=== PATIENT | male | born 1930 | race African-American/Black ===

== ENCOUNTER 2016-12-11 16:46 | Emergency (ER) | payer MEDICARE, MEDICAID ==
[2016-12-11 18:50] LABS: PROTHROMBIN TIME 13.6 SEC (11.4-15.4)
--- NOTE | 2016-12-11 18:50 | RADIOLOGY REPORT (SQ) ---
EXAM DESCRIPTION: FOOT RIGHT COMPLETE COMPLETED DATE/TIME: 12/11/2016 6:17 pm REASON FOR STUDY: infection COMPARISON: None. NUMBER OF VIEWS: Three views. TECHNIQUE: AP, lateral and oblique radiographic images acquired of the right foot. LIMITATIONS: None. FINDINGS: MINERALIZATION: Normal. BONES: No acute fracture or dislocation. There is no plain film evidence for bony involvement by ost eomyelitis. JOINTS: Hallux valgus is identified. Degenerative changes are identified and a couple of the tarsal bone articulations. SOFT TISSUES: There is an apparent soft tissue defect at the level of the 1st digit. I cannot exclud e a component of subcutaneous air. Clinical correlation is recommended. There appears to be associa rubio soft tissue swelling. OTHER: No other significant finding. IMPRESSION: No acute fracture or dislocation. No plain film evidence for bony involvement by osteom protis. Other findings as noted above TECHNICAL DOCUMENTATION: JOB ID: [id number] [employer]- All Rights Reserved
[2016-12-11 18:51] LABS: PARTIAL THROMBOPLASTIN TIME 30.4 SEC (23.5-35.8)
[2016-12-11 18:54] LABS: ABSOLUTE EOSINOPHILS # (AUTO) 0.2 10^3/uL (0.0-0.6); ABSOLUTE LYMPHOCYTES (AUTO) 1.6 10^3/uL (0.5-4.7); ABSOLUTE MONOCYTES (AUTO) 0.4 10^3/uL (0.1-1.4); ABSOLUTE NEUT (AUTO) 1.7 10^3/uL (1.7-8.2); EOSINOPHILS % (AUTO) 5.5 % (0-6); HEMATOCRIT 37.9 % (37.9-51.0); HEMOGLOBIN 12.4 g/dL (13.5-17.0); HGB HCT DIFFERENCE -0.7; LYMPHOCYTES % (AUTO) 40.4 % (13-45); MEAN CORPUSCULAR HEMOGLOBIN 33.3 pg (27.0-33.4); MEAN CORPUSCULAR HGB CONC 32.9 g/dL (32.0-36.0); MEAN CORPUSCULAR VOLUME 101 fl (80-97); RED BLOOD COUNT 3.74 10^6/uL (4.35-5.55); RED CELL DISTRIBUTION WIDTH 12.9 % (11.5-14.0); SEGMENTED NEUTROPHILS % (AUTO) 43.1 % (42-78); WHITE BLOOD COUNT 3.8 10^3/uL (4.0-10.5)
[2016-12-11 19:10] LABS: ALANINE AMINOTRANSFERASE 23 U/L (21-72); ALBUMIN 3.9 g/dL (3.5-5.0); ALKALINE PHOSPHATASE 95 U/L (38-126); ANION GAP 12 (5-19); ASPARTATE AMINO TRANSFERASE 19 U/L (17-59); BILIRUBIN,DIRECT 0.4 mg/dL (0.0-0.4); BLOOD UREA NITROGEN 16 mg/dL (7-20); CALCIUM 9.6 mg/dL (8.4-10.2); CARBON DIOXIDE 27 mmol/L (22-30); CHLORIDE 102 mmol/L (98-107); GLUCOSE 110 mg/dL (75-110); POTASSIUM 4.5 mmol/L (3.6-5.0); SODIUM 141.3 mmol/L (137-145); TOTAL PROTEIN 6.9 g/dL (6.3-8.2)
--- NOTE | 2016-12-11 19:23 | ER Document Report ---
ED Extremity Problem, Lower - General Mode of Arrival: Ambulatory Information source: Patient TRAVEL OUTSIDE OF THE [place] IN LAST 30 DAYS: No <RUBIN SCHAEFER - Last Filed: 12/11/16 21:27> <ANDREW CORTES - Last Filed: 12/12/16 00:16> - General Chief Complaint: Toe Injury Stated Complaint: TOE PAIN Time Seen by Provider: 12/11/16 17:18 Notes: Patient is an 86-year-old male who presents to the emergency department today with complaints of left great toe pain. Patient states he has not been seen by a blue print control clerk. [facility] secondary to an abnormal appearance of the left great toe nail with associated pain. History is limited secondary to the patient's being somewhat of a poor historian. (RUBIN SCHAEFER) - Related Data Allergies/Adverse Reactions: No Known Allergies Allergy (Verified 12/11/16 16:57) Past Medical History - General Information source: Patient - Social History Smoking Status: Never Smoker Chew tobacco use (# tins/day): No Frequency of alcohol use: None Drug Abuse: None Lives with: Family Family History: Reviewed & Not Pertinent - Past Medical History Cardiac Medical History: Reports: Hx Congestive Heart Failure GI Medical History: Musculoskeltal Medical History: Infectious Medical History: Surgical Hx: Negative - Immunizations Hx Diphtheria, Pertussis, Tetanus Vaccination: Yes <RUBIN SCHAEFER - Last Filed: 12/11/16 21:27> Review of Systems - Review of Systems Constitutional: No symptoms reported EENT: No symptoms reported Cardiovascular: No symptoms reported Respiratory: No symptoms reported Gastrointestinal: No symptoms reported Genitourinary: No symptoms reported Male Genitourinary: No symptoms reported Musculoskeletal: See HPI, Other - left great toe pain Skin: No symptoms reported Hematologic/Lymphatic: No symptoms reported Neurological/Psychological: No symptoms reported -: Yes All other systems reviewed and negative <RUBIN SCHAEFER - Last Filed: 12/11/16 21:27> Physical Exam <RUBIN SCHAEFER - Last Filed: 12/11/16 21:27> <ANDREW CORTES - Last Filed: 12/12/16 00:16> - Vital signs Vitals: Temp Pulse Resp BP Pulse Ox 97.5 F 76 18 118/47 L 99 12/11/16 16:52 12/11/16 16:52 12/11/16 16:52 12/11/16 16:52 12/11/16 16:52 - Notes Notes: Physical Exam: General: Alert, appears at baseline. HEENT: Normocephalic. Atraumatic. PERRLA. Extraocular movements intact. Oropharynx clear. Neck: Supple. Respiratory: No respiratory distress. Abdominal: Normal Inspection. No distension. Extremities: Moves all four extremities. Fungus on toes of bilateral feet, deformity of left great toe tail, pain with palpation of left great toe nail bed with the area of most pain being on the lateral portion of the great toe closest to the 2nd digit consistent with ingrown toe nail. Neurological: Normal cognition. AAOx4. Normal speech. Psychological: Normal affect. Normal Mood. Skin: Warm. Dry. Normal color. (RUBIN SCHAEFER) Course - Laboratory Result Diagrams: 12/11/16 18:22 12/11/16 18:22 <RUBIN SCHAEFER - Last Filed: 12/11/16 21:27> - Laboratory Result Diagrams: 12/11/16 18:22 12/11/16 18:22 <ANDREW CORTES - Last Filed: 12/12/16 00:16> - Re-evaluation Re-evalutation: 12/12/16 Patient with no evidence for cellulitis, abscess, or osteomyelitis. Patient has an advanced fungal infection of his toenail and looks to be an ingrown toenail. Will be started on Keflex and is to follow-up with podiatry. Otherwise stable for discharge. Blood work unremarkable (ANDREW CORTES ) - Vital Signs Vital signs: Temp Pulse Resp BP Pulse Ox 97.4 F 68 16 154/83 H 100 12/11/16 23:47 12/11/16 23:47 12/11/16 23:47 12/11/16 23:47 12/11/16 23:47 - Laboratory Laboratory results interpreted by me: 12/11/16 12/11/16 18:22 18:22 WBC 3.8 L RBC 3.74 L Hgb 12.4 L MCV 101 H Plt Count 101 L Creatinine 1.30 H Est GFR (Non-Af Amer) 52 L Discharge <RUBIN SCHAEFER - Last Filed: 12/11/16 21:27> <ANDREW CORTES - Last Filed: 12/12/16 00:16> - Discharge Clinical Impression: Fungal toenail infection, Ingrown nail of great toe of left foot Condition: Stable Disposition: HOME, SELF-CARE Instructions: Fungal Nail Infection ([facility]), Ingrown Nail ([facility]) Prescriptions: Cephalexin Monohydrate [Keflex 500 mg Capsule] 500 mg PO TID 10 Days capsule Referrals: AICHA WARNER MD [Primary Care Provider] - Follow up as needed ELIA DENNIS DPM [ACTIVE STAFF] - Follow up in 3-5 days Scribe Attestation: 12/12/16 00:15 I personally performed the services described in the documentation, reviewed and edited the documentation which was dictated to the scribe in my presence, and it accurately records my words and actions. (ANDREW CORTES)
[2016-12-11] MEDS ORDERED: CEPHALEXIN 500 MG CAPSULE PO ONE (19:26)
--- NOTE | 2016-12-11 20:19 | RADIOLOGY REPORT (SQ) ---
EXAM DESCRIPTION: TOE LEFT COMPLETED DATE/TIME: 12/11/2016 7:52 pm REASON FOR STUDY: pain, evaluate for infection COMPARISON: None. NUMBER OF VIEWS: Three views. TECHNIQUE: AP, lateral, and oblique images acquired of the left first toe. LIMITATIONS: None. FINDINGS: MINERALIZATION: Normal. BONES: No acute fracture or dislocation. No worrisome bone lesions. JOINTS: Hallux valgus is identified. SOFT TISSUES: There is an apparent soft tissue defect involving the 1st digit. I cannot exclude subc utaneous air. Clinical correlation is recommended OTHER: No other significant finding. IMPRESSION: No plain film evidence for bony involvement by osteomyelitis. Soft tissue findings invo lving the 1st digit as noted above. Other findings as noted above COMMENT: SITE OF TRAUMA/COMPLAINT MARKED/STAMP COMPLETED: No TECHNICAL DOCUMENTATION: JOB ID: [id number] [employer]- All Rights Reserved
[2016-12-11] MEDS ORDERED: LIDOCAINE 1% INJ-PF (10 MG/ML) 30 ML SDV INJ ONE (21:12)
[2016-12-11] MEDS ORDERED: CEFTRIAXONE INJ 1000 MG VIAL IM ONE (21:12)
[2016-12-11 23:48] VITALS: BP 154/83
== END 2016-12-11 23:47 | disposition home or self-care (01) ==
LOC: ER 16:46
DX: L60.0 Ingrowing nail (principal); B35.1 Tinea unguium; M79.675 Pain in left toe(s)
CPT/HCPCS: 99284; 96372; 36415; 85025; 85610; 85730; 80053; 73630; 73660; J3490; J0696

== ENCOUNTER 2017-07-31 11:35 | Emergency (ER) | payer MEDICARE, MEDICAID ==
[2017-07-31] MEDS ORDERED: HALOPERIDOL LACTATE INJ 5 MG/1 ML VIAL IM ONE (12:09)
[2017-07-31] MEDS ORDERED: LORAZEPAM INJ 2 MG/1 ML VIAL IM ONE ×2 (12:10→17:40)
[2017-07-31] MEDS ORDERED: HALOPERIDOL LACTATE INJ 5 MG/1 ML VIAL ONE (12:14)
--- NOTE | 2017-07-31 13:56 | RADIOLOGY REPORT (SQ) ---
EXAM DESCRIPTION: CT HEAD WITHOUT COMPLETED DATE/TIME: 07/31/2017 1:41 pm REASON FOR STUDY: combative COMPARISON: February 2016 TECHNIQUE: Axial images acquired through the brain without intravenous contrast. Images reviewed wi th bone, brain and subdural windows. Additional sagittal and coronal reconstructions were generated. Images stored on PACS. All CT scanners at this facility use dose modulation, iterative reconstruction, and/or weight based d osing when appropriate to reduce radiation dose to as low as reasonably achievable (ALARA). [facility]: Dose Right [facility]: CareDose [facility]: Dose Right [facility]: Teradose 4D [facility]: Intention Technology RADIATION DOSE: CT Rad equipment meets quality standard of care and radiation dose reduction techniq ues were employed. CTDIvol: 53.2 mGy. DLP: 1124 mGy-cm.mGy. LIMITATIONS: None. FINDINGS: VENTRICLES: Prominent. CEREBRUM: No masses. No hemorrhage. No midline shift. Areas of low density in the white matter mos t likely due to chronic micro-vascular ischemic change. No evidence for acute infarction. CEREBELLUM: No masses. No hemorrhage. No alteration of density. No evidence for acute infarction. EXTRAAXIAL SPACES: Age-related involutional change. No fluid collections. No masses. ORBITS AND GLOBE: No intra- or extraconal masses. Normal contour of globe without masses. CALVARIUM: No fracture. PARANASAL SINUSES: No fluid or mucosal thickening. SOFT TISSUES: No mass or hematoma. OTHER: No other significant finding. IMPRESSION: CHRONIC CHANGES OF ATROPHY AND MICROVASCULAR ISCHEMIA. NO ACUTE PROCESS. EVIDENCE OF ACUTE STROKE: NO. TECHNICAL DOCUMENTATION: JOB ID: [id number] Quality ID # [id number]: Final reports with documentation of one or more dose reduction techniques (e.g., Au tomated exposure control, adjustment of the mA and/or kV according to patient size, use of iterative reconstruction technique) 2010 [employer]- All Rights Reserved Reading location - IP/workstation name: [email or web address]
[2017-07-31 15:06] LABS: ABSOLUTE EOSINOPHILS # (AUTO) 0.1 10^3/uL (0.0-0.6); ABSOLUTE LYMPHOCYTES (AUTO) 1.5 10^3/uL (0.5-4.7); ABSOLUTE MONOCYTES (AUTO) 0.4 10^3/uL (0.1-1.4); ABSOLUTE NEUT (AUTO) 3.4 10^3/uL (1.7-8.2); BASOPHILS % (AUTO) 0.8 % (0-2); EOSINOPHILS % (AUTO) 2.3 % (0-6); HEMOGLOBIN 13.9 g/dL (13.5-17.0); LYMPHOCYTES % (AUTO) 27.7 % (13-45); MEAN CORPUSCULAR HEMOGLOBIN 32.6 pg (27.0-33.4); MEAN CORPUSCULAR HGB CONC 33.9 g/dL (32.0-36.0); MEAN CORPUSCULAR VOLUME 96 fl (80-97); MONOCYTES % (AUTO) 7.8 % (3-13); PLATELET COUNT 124 10^3/uL (150-450); RED BLOOD COUNT 4.27 10^6/uL (4.35-5.55); RED CELL DISTRIBUTION WIDTH 12.8 % (11.5-14.0); SEGMENTED NEUTROPHILS % (AUTO) 61.4 % (42-78); TOTAL CELLS COUNTED % (AUTO) 100 %; WHITE BLOOD COUNT 5.5 10^3/uL (4.0-10.5)
[2017-07-31 15:16] LABS: ALANINE AMINOTRANSFERASE 23 U/L (21-72); ALBUMIN 4.2 g/dL (3.5-5.0); ALKALINE PHOSPHATASE 82 U/L (38-126); ANION GAP 11 (5-19); ASPARTATE AMINO TRANSFERASE 33 U/L (17-59); BILIRUBIN,DIRECT 0.3 mg/dL (0.0-0.4); BILIRUBIN,TOTAL 1.3 mg/dL (0.2-1.3); BLOOD UREA NITROGEN 18 mg/dL (7-20); CALCIUM 10.1 mg/dL (8.4-10.2); CARBON DIOXIDE 31 mmol/L (22-30); CHLORIDE 104 mmol/L (98-107); GLUCOSE 85 mg/dL (75-110); POTASSIUM 4.6 mmol/L (3.6-5.0); SODIUM 145.6 mmol/L (137-145); TOTAL PROTEIN 7.9 g/dL (6.3-8.2)
[2017-07-31 15:42] LABS: APPEARANCE,URINE CLEAR; BILIRUBIN,URINE NEGATIVE (NEGATIVE); COLOR,URINE YELLOW; GLUCOSE, URINE NEGATIVE (NEGATIVE); KETONES,URINE NEGATIVE (NEGATIVE); LEUKOCYTE ESTERASE,URINE NEGATIVE (NEGATIVE); NITRITE,URINE NEGATIVE (NEGATIVE); PROTEIN,URINE NEGATIVE (NEGATIVE); URINE SPECIFIC GRAVITY 1.013
--- NOTE | 2017-07-31 16:49 | ER Document Report ---
ED General - General Chief Complaint: Altered Mental Status Stated Complaint: ALTERED MENTAL STATUS Time Seen by Provider: 07/31/17 11:53 Mode of Arrival: Medic Information source: Transfer Record Notes: This is an 86-year-old man with a history of dementia and combativeness who is brought in from the [facility] because of combativeness. He denies any pain on my evaluation. I did speak to the patient's and family and they reiterate that he does have a history of aggressiveness in the past which is why he is currently at [facility] and that he has a long history of dementia. TRAVEL OUTSIDE OF THE [place] IN LAST 30 DAYS: No - HPI Onset: Just prior to arrival Onset/Duration: Sudden Quality of pain: No pain Severity: None Pain Level: Denies Associated symptoms: denies: Chest pain, Fever, Shortness of breath Exacerbated by: Denies Relieved by: Denies Similar symptoms previously: Yes Recently seen / treated by doctor: No - Related Data Allergies/Adverse Reactions: No Known Allergies Allergy (Verified 12/11/16 16:57) Past Medical History - General Information source: Patient - Social History Smoking Status: Never Smoker Cigarette use (# per day): No Chew tobacco use (# tins/day): No Frequency of alcohol use: None Drug Abuse: None Lives with: Family Family History: Reviewed & Not Pertinent Patient has suicidal ideation: No Patient has homicidal ideation: No - Past Medical History Cardiac Medical History: Reports: Hx Congestive Heart Failure Denies: Hx Coronary Artery Disease, Hx Heart Attack, Hx Hypertension Pulmonary Medical History: Denies: Hx Asthma, Hx Bronchitis, Hx COPD, Hx Pneumonia Neurological Medical History: Denies: Hx Cerebrovascular Accident, Hx Seizures Renal/ Medical History: Denies: Hx Peritoneal Dialysis GI Medical History: Musculoskeltal Medical History: Denies Hx Arthritis Infectious Medical History: Surgical Hx: Negative Past Surgical History: Denies: Hx Pacemaker - Immunizations Hx Diphtheria, Pertussis, Tetanus Vaccination: Yes Review of Systems - Review of Systems Constitutional: denies: Chills, Fever EENT: No symptoms reported Cardiovascular: No symptoms reported Respiratory: No symptoms reported Gastrointestinal: No symptoms reported Genitourinary: No symptoms reported Male Genitourinary: No symptoms reported Musculoskeletal: No symptoms reported Skin: No symptoms reported Hematologic/Lymphatic: No symptoms reported Neurological/Psychological: See HPI Physical Exam - Vital signs Notes: Physical exam: GENERAL: 86-year-old man, alert, he does have dementia. He is in no acute distress. HEAD: Atraumatic, normocephalic. EYES: Pupils equal round and reactive to light, extraocular movements intact, sclera anicteric, conjunctiva are normal. ENT: TMs normal, nares patent, oropharynx clear without exudates. Moist mucous membranes. NECK: Normal range of motion, supple without obvious mass or JVD. LUNGS: Breath sounds clear to auscultation bilaterally and equal. No wheezes rales or rhonchi. HEART: Regular rate and rhythm without murmurs, rubs or gallops. ABDOMEN: Soft, normoactive bowel sounds. No tenderness to palpation. No guarding, no rebound. No masses appreciated. EXTREMITIES: Normal range of motion, no pitting or edema. No clubbing or cyanosis. NEUROLOGICAL: Cranial nerves II through XII grossly intact. Normal speech, moving all extremities. PSYCH: Labile affect SKIN: Warm, Dry, normal turgor, no rashes or lesions noted. Course - Laboratory Result Diagrams: 07/31/17 14:46 07/31/17 14:46 Laboratory results interpreted by me: 07/31/17 07/31/17 07/31/17 14:46 14:46 14:46 RBC 4.27 L Plt Count 124 L Sodium 145.6 H Carbon Dioxide 31 H Creatinine 1.32 H Est GFR (Non-Af Amer) 52 L Urine Urobilinogen 4.0 H - Diagnostic Test Radiology reviewed: Image reviewed, Reports reviewed - CT of the head shows no acute stroke or bleed. Discharge - Discharge Clinical Impression: Combativeness, Dementia Condition: Stable Disposition: HOME, SELF-CARE Additional Instructions: Note: Mr. Glil is had CT showed no evidence of acute stroke or bleed. His urine analysis was without any infection. His kidney function, electrolytes and sugar all look good. He was observed for several hours in the emergency room and has done fine. Recommendations are to continue current medicines.
[2017-07-31 18:07] VITALS: BP 131/110
== END 2017-07-31 18:07 | disposition home or self-care (01) ==
LOC: ER 11:35
DX: F03.91 Unspecified dementia, unspecified severity, with behavioral disturbance (principal)
CPT/HCPCS: 99285; 96372; 36415; 85025; 80053; 81001; 70450; J1630; J2060

== ENCOUNTER 2017-08-11 22:39 | Emergency (ER) | payer MEDICARE, MEDICAID ==
--- NOTE | 2017-08-11 22:55 | ER Document Report ---
ED General - General Stated Complaint: ALTERED MENTAL STATUS Time Seen by Provider: 08/11/17 22:46 Cannot obtain history due to: Dementia Notes: Patient is an 87-year-old male with a past medical history of dementia with associated aggressive behaviors who presents from the nursing facility with concerns that he is being aggressive toward staff. Review of prior documentation shows that this is actually the reason why [facility]. He was seen in the emergency department approximately 10 days ago for the same and had a reassuring evaluation at that time. The patient is profoundly demented, only knows his name. When I ask him what his concerns are today he states "I do not know why I am here" TRAVEL OUTSIDE OF THE [place] IN LAST 30 DAYS: No - Related Data Allergies/Adverse Reactions: No Known Allergies Allergy (Verified 12/11/16 16:57) Past Medical History - General Information source: Emergency Med Personnel, [facility] Records Cannot obtain history due to: Dementia - Social History Smoking Status: Unknown if Ever Smoked Frequency of alcohol use: None Drug Abuse: None Lives with: Assisted Family History: Reviewed & Not Pertinent - Past Medical History Cardiac Medical History: Reports: Hx Congestive Heart Failure Denies: Hx Coronary Artery Disease, Hx Heart Attack, Hx Hypertension Pulmonary Medical History: Denies: Hx Asthma, Hx Bronchitis, Hx COPD, Hx Pneumonia Neurological Medical History: Denies: Hx Cerebrovascular Accident, Hx Seizures Renal/ Medical History: Denies: Hx Peritoneal Dialysis GI Medical History: Musculoskeltal Medical History: Denies Hx Arthritis Infectious Medical History: Past Surgical History: Denies: Hx Pacemaker - Immunizations Hx Diphtheria, Pertussis, Tetanus Vaccination: Yes Review of Systems - Review of Systems Notes: Constitutional: Negative for fever. HENT: Negative for sore throat. Eyes: Negative for visual changes. Cardiovascular: Negative for chest pain. Respiratory: Negative for shortness of breath. Gastrointestinal: Negative for abdominal pain, vomiting or diarrhea. Genitourinary: Negative for dysuria. Musculoskeletal: Negative for back pain. Skin: Negative for rash. Neurological: Negative for headaches, weakness or numbness. 10 point ROS negative except as marked above and in HPI. Physical Exam - Vital signs Interpretation: Normal Notes: PHYSICAL EXAMINATION: GENERAL: Well-appearing, well-nourished and in no acute distress. HEAD: Atraumatic, normocephalic. EYES: Pupils equal round and reactive to light, extraocular movements intact, sclera anicteric, conjunctiva are normal. ENT: nares patent, oropharynx clear without exudates. Moist mucous membranes. NECK: Normal range of motion, supple without lymphadenopathy LUNGS: Breath sounds clear to auscultation bilaterally and equal. No wheezes rales or rhonchi. HEART: Regular rate and rhythm without murmurs ABDOMEN: Soft, nontender, normoactive bowel sounds. No guarding, no rebound. No masses appreciated. EXTREMITIES: Normal range of motion, no pitting or edema. No cyanosis. NEUROLOGICAL: No focal neurological deficits. Moves all extremities spontaneously and on command. PSYCH: Alert, oriented only to person SKIN: Warm, Dry, normal turgor, no rashes or lesions noted. Course - Re-evaluation Re-evalutation: 08/11/17 22:57 Patient presents from his halfway facility after he was apparently combative and violent towards staff of which he has a long-standing history. Review of the medical record indicates that the patient was actually placed in a nursing facility explicitly because he has a tendency towards violent and aggressive behaviors since becoming demented. The patient is alert, oriented only to person. He denies any complaints or concerns. He is calm and cooperative here. No indication for labs or further assessment. He had a full laboratory assessment 1 week ago for the same which was unremarkable. He will be discharged back to the nursing facility with return precautions. Discharge - Discharge Clinical Impression: Aggressive behavior Dementia Qualifiers: Dementia type: unspecified type Dementia behavioral disturbance: with behavioral disturbance Qualified Code(s): F03.91 - Unspecified dementia with behavioral disturbance Condition: Good Disposition: HOME, SELF-CARE Additional Instructions: Return for any additional concerns you may have. Referrals: AICHA WARNER MD [Primary Care Provider] - Follow up as needed
[2017-08-12 04:11] VITALS: BP 179/82
== END 2017-08-12 02:00 | disposition home or self-care (01) ==
LOC: ER 22:39
DX: F91.9 Conduct disorder, unspecified (principal); F03.91 Unspecified dementia, unspecified severity, with behavioral disturbance; R41.82 Altered mental status, unspecified
CPT/HCPCS: 99285

== ENCOUNTER 2017-08-20 12:19 | Emergency (ER) | payer MEDICARE, MEDICAID ==
[2017-08-15] MEDS: DIVALPROEX SODIUM 125 MG CAP.SPRINK PO SCH (18:00)
[2017-08-20] MEDS ORDERED: HALOPERIDOL LACTATE INJ 5 MG/1 ML VIAL IM ONE ×2 (12:50→17:56)
--- NOTE | 2017-08-20 14:56 | ER Document Report ---
ED General - General Stated Complaint: BEHAVIORAL ISSUES Time Seen by Provider: 08/20/17 12:41 TRAVEL OUTSIDE OF THE [place] IN LAST 30 DAYS: No - HPI Notes: 87-year-old male who presents with agitation. No history is limited given the patient's underlying dementia and severe agitation. He presents from a nursing facility where he resides for the after mentioned reason. Apparently he would not take his oral Ativan today, became agitated shelter felt that they could not care for him and sent him to the emergency department. I handle prehospital medical direction and had authorize intramuscular Ativan which she received. On my initial evaluation he is angry, does not answer questions well and does not focus. Minimal other information is available. There has been no history of trauma, no history of antecedent illness. Of note, he has been here 2 times this month for similar presentation, review of those records show negative workups and indicate that his reason for being in the shelter was his agitated behavior. - Related Data Allergies/Adverse Reactions: No Known Allergies Allergy (Verified 12/11/16 16:57) Past Medical History - General Cannot obtain history due to: Dementia - Social History Smoking Status: Unknown if Ever Smoked Family History: Reviewed & Not Pertinent - Past Medical History Cardiac Medical History: Reports: Hx Congestive Heart Failure Denies: Hx Coronary Artery Disease, Hx Heart Attack, Hx Hypertension Pulmonary Medical History: Denies: Hx Asthma, Hx Bronchitis, Hx COPD, Hx Pneumonia Neurological Medical History: Denies: Hx Cerebrovascular Accident, Hx Seizures Renal/ Medical History: Denies: Hx Peritoneal Dialysis GI Medical History: Musculoskeltal Medical History: Denies Hx Arthritis Infectious Medical History: Past Surgical History: Denies: Hx Pacemaker - Immunizations Hx Diphtheria, Pertussis, Tetanus Vaccination: Yes Review of Systems - Review of Systems -: Yes ROS unobtainable due to patient's medical condition Physical Exam - Vital signs Vitals: Temp Pulse Resp BP Pulse Ox 98 F 84 16 112/73 100 08/20/17 13:19 08/20/17 13:19 08/20/17 13:19 08/20/17 13:19 08/20/17 13:19 - Notes Notes: General: Well devloped, no acute distress. HEENT: Normocephalic, atraumatic. Pupils equal round reactive to light. Mucosa moist. No JVD. Chest: No trauma, normal excursion. Respiratory: Good air exchange, normal excursion. Cardiac: Regular rhythm Abdomen: Soft, benign. Nondistended. Back: No asymmetry or gross abnormality. Motor: Grossly normal power and tone. Neurologic: Alert, nonfocal. At times agitated with speaking and speaks nonsensically Vascular: Well perfused Skin: No petechiae or purpura Course - Re-evaluation Re-evalutation: 08/20/17 14:56 Female with agitation, appears to be his baseline state. At this point going to attempt to obtain history from the shelter, review records, allow the Ativan to work and reassess. 08/21/17 18:25 Ultimately elected to proceed with psychiatric consultation and evaluation. Patient required a 5 mg dose of haloperidol as he become acutely agitated, combative and was striking at staff. This had good effect in terms of diffusing his behavior. Labs were ordered at the request of the psychiatric consultation team, however, later canceled after discussion with them and the difficulty in obtaining these labs. Of note, patient had been evaluated and undergone extensive workup with the last couple of weeks which was on illustrative. This time we are attempting behavioral stabilization, he is being cared for by the psychiatric team with medication recommendations being given by them. - Vital Signs Vital signs: Temp Pulse Resp BP Pulse Ox 98.2 F 102 H 17 119/92 H 95 08/20/17 17:07 08/20/17 21:10 08/20/17 21:10 08/20/17 21:10 08/20/17 21:10 - Laboratory Result Diagrams: 08/21/17 18:15 08/21/17 18:15 Laboratory results interpreted by me: 08/20/17 08/21/17 16:25 18:15 Sodium 145.1 H Chloride 111 H Carbon Dioxide 21 L Creatinine 1.70 H Est GFR ( Amer) 46 L Est GFR (Non-Af Amer) 38 L Glucose 143 H Urine Urobilinogen 4.0 H Ur Leukocyte Esterase TRACE H Discharge - Discharge Referrals: AICHA WARNER MD [Primary Care Provider] - Follow up as needed
--- NOTE | 2017-08-20 16:20 | PSYCHOLOGICAL NOTE ---
Psych Note - Psych Note Psych Note: Reason for consult: Dementia related aggressive behaviors/AMS Contact Permission: Daksha (goes by Palak) at [facility] [phone] Patient is an 87 year old male who presented to the ED today via EMS accompanied by JASMYNE due to physically aggressive behaviors at his assisted living facility ([facility]). Patient observed to be resting in bed with patient safety glass installer outside door. He has been calm and cooperative without disturbance in ED thus far. Chart review indicated he was seen in [facility] ED on both 07/31/17 and 08/11/17 both for AMS and similar etiology. Head CT dated 07/31/17 completed secondary to combativeness had the following findings: prominent ventricles, areas of low density in the white matter most likely due to chronic micro-vascular ischemic change and age related involutional change. Overall findings were: chronic changes of atrophy and micro-vascular ischemia. This is language suggestive of neuro-degenerative processes as seen in dementia and coincides with reported diagnosis/behaviors. Reviewed documentation on patient's chart from [facility]. The following medications were listed: Aricept 10MG PO QID, Vitamin D3 1000 Units PO 1 pill QD , Aspirin 81MG PO 1 pill QD, Simvastatin 40MG QD, Namenda 10MG PO QD, Lorazepam 0.5MG Q6H PRN anxiety. Daksha "Carin Walton ([phone]) contacted the [facility] Behavioral Health Team. She identified she is involved in the direct care of patient at [facility]. She reported this is patient's 3rd visit in 2 weeks due to "aggressive, combative behaviors." She further stated he has been "assaultive, fighting staff and other residents." She stated to her knowledge the previous two times he has been in the ED he has required restraints initially. She reported patient has a Dementia diagnosis, his behaviors are a direct result of the dementia and she understands dementia and behaviors will likely get progressively worse. She identified the goal is to get patient to a place like [facility] where he can get medication stabilization so they ([facility]) can then make a referral to a memory care unit at their sister facility. She explained she has been trying to refer patient to [facility] the past couple weeks however they keep asking for the psychiatric consult, medical clearance and lab work. 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 There are only about 3 inpatient facilities that address dementia behaviors so will attempt referral to those facilities ([facility], [place]). Consulted with Dr. Donaldson regarding the management and care of patient. Medication recommendations made by the psychiatric medical provider, Dr. Savanah NOONAN, include: Discontinue Lorazepam 0.5MG every 6 hours as needed for anxiety (should avoid Benzodiazepines and Antipsychotics with patients who have dementia diagnosis as these have been known to cause and/or exacerbate aggression, psychosis, paranoia ). Add Depakote 500MG twice a day for mood stabilization Add Buspar 5MG twice a day for anxiety, sleep, calming
[2017-08-20 16:52] LABS: AMORPHOUS SEDIMENT,URINE TRACE /HPF; APPEARANCE,URINE SLIGHTLY-CLOUDY; BILIRUBIN,URINE NEGATIVE (NEGATIVE); COLOR,URINE YELLOW; GLUCOSE, URINE NEGATIVE (NEGATIVE); KETONES,URINE NEGATIVE (NEGATIVE); LEUKOCYTE ESTERASE,URINE TRACE (NEGATIVE); NITRITE,URINE NEGATIVE (NEGATIVE); PROTEIN,URINE NEGATIVE (NEGATIVE)
--- NOTE | 2017-08-20 17:54 | PSYCHOLOGICAL NOTE ---
Psych Note - Psych Note Psych Note: The sole purpose of this note is to add medication recommendations to address patient's aggressive behaviors Medication recommendations made by contracted psychiatric [facility] provider Dr. Savanah MD includes: 1. Please Discontinue Xanax 2. Please do not prescribe Vistaril or Benadryl 3. Please utilize Depakote sprinkles 500 mg twice a day instead of the p.o. form 4. Please begin risperidone 0.25 mg 1 time dose now 5. Please begin risperidone q. 8 at 8 AM and 4 PM 6. Please begin clonidine 0.2 mg now 7. Please begin clonidine 24 hour patch 0.2 mg at bedtime Treating physicians are asked to consider avoiding prescribing benzodiazepines (example Ativan, Xanax, Valium, Klonopin), antipsychotics ( example Haldol, Geodon, Zyprexa, Seroquel), some sleep aids (such as, Ambien, Lunesta, Sonata), narcotic pain medications, and high-dose steroid (prednisone) as these have been known to cause and/or increased symptoms of aggression, psychosis, or paranoia in patients with neurodegenerative process, such as dementia, Alzheimer's disease, traumatic brain injury, etc. Attending physician not in agreement with plan and disposition. Consulted with Dr. Donaldson regarding the management and care of patient.
[2017-08-20] MEDS ORDERED: BUSPIRONE HCL 10 MG TABLET PO SCH (18:00)
[2017-08-20] MEDS ORDERED: DIVALPROEX SODIUM 500 MG TAB.SR.24H PO SCH (18:00)
--- NOTE | 2017-08-20 18:07 | EKG REPORT ---
SEVERITY:- ABNORMAL ECG - SINUS RHYTHM FIRST DEGREE AV BLOCK : Confirmed by: Ayo Cool MD 20-Aug-2017 18:06:07
--- NOTE | 2017-08-21 08:53 | PSYCHOLOGICAL NOTE ---
Psych Note - Psych Note Psych Note: Reason for evaluation: Aggression Patient is an 87-year-old male. Patient stated "all right". Patient stated "no ". Patient stated "where is the table". Medication recommendations made by contracted psychiatric [facility] provider Dr. Savanah MD includes: 1. Please Discontinue Xanax 2. Please do not prescribe Vistaril or Benadryl 3. Please utilize Depakote sprinkles 500 mg twice a day instead of the p.o. form 4. Please begin risperidone 0.25 mg 1 time dose now 5. Please begin risperidone 0.25 mg q. 8 at 8 AM and 4 PM 6. Please begin clonidine 0.2 mg now 7. Please begin clonidine 24 hour patch 0.2 mg at bedtime Treating physicians are asked to consider avoiding prescribing benzodiazepines (example Ativan, Xanax, Valium, Klonopin), antipsychotics ( example Haldol, Geodon, Zyprexa, Seroquel), some sleep aids (such as, Ambien, Lunesta, Sonata), narcotic pain medications, and high-dose steroid (prednisone) as these have been known to cause and/or increased symptoms of aggression, psychosis, or paranoia in patients with neurodegenerative process, such as dementia, Alzheimer's disease, traumatic brain injury, etc. Impression/Plan: Clinician observed patient is unable to answer assessment questions. Clinician observed patient has food tray and is unable to feed himself, and asked where the table was when clinician pointed out his food was on the tray next to him. Clinician observed yesterday evening around 6 PM patient's nurse approached clinician stating patient had been aggressive. At this time case management manager for [facility] is currently working with discharge planning to coordinate care of patient regarding placement efforts for a dementia care unit. Attending physician in agreement with plan and disposition. Consulted with Dr. Donaldson regarding the management and care of patient.
[2017-08-21] MEDS ORDERED: CEPHALEXIN 500 MG CAPSULE PO ONE (09:44)
--- NOTE | 2017-08-21 09:48 | ER Document Report ---
Doctor's Note Notes: 08/21/17 09:45 87-year-old male who is coming from the [facility] secondary to agitated behavior. Laboratory work was canceled and it does appear that the patient has a urinary tract infection. No antibiotics have yet been provided. No urine culture was sent. I have spoken to the nurse who was caring for the patient. We will attempt to add on a urine culture were collected new sample if needed. Pending urine cultures, we will start the patient on Keflex by mouth if he is willing to take this medication. If he is not we will provide an injection of Rocephin. It appears that the psychiatry team has provided medication recommendations. These have not yet been placed into the system. We are waiting for social work consultation and I will discuss the medication adjustments with the psychiatry team once again. Given the medication adjustments and the urinary tract infection, I will obtain a CBC as well as a chemistry profile with liver panel included.
[2017-08-21] MEDS ORDERED: RISPERIDONE 0.25 MG TABLET PO SCH (13:00)
[2017-08-21] MEDS: RISPERIDONE 0.25 MG TABLET PO SCH (14:10)
[2017-08-21] MEDS: DIVALPROEX SODIUM 125 MG CAP.SPRINK PO SCH (18:00)
[2017-08-21] MEDS: BUSPIRONE HCL 10 MG TABLET PO SCH (18:00)
[2017-08-21] MEDS: CLONIDINE 0.2 MG/24 HR PATCH.TDWK TD SCH (18:00)
[2017-08-21 19:10] LABS: ALANINE AMINOTRANSFERASE 23 U/L (21-72); ALBUMIN 3.8 g/dL (3.5-5.0); ALKALINE PHOSPHATASE 77 U/L (38-126); ANION GAP 13 (5-19); ASPARTATE AMINO TRANSFERASE 53 U/L (17-59); BILIRUBIN,DIRECT 0.3 mg/dL (0.0-0.4); BILIRUBIN,TOTAL 0.8 mg/dL (0.2-1.3); BLOOD UREA NITROGEN 14 mg/dL (7-20); CALCIUM 9.7 mg/dL (8.4-10.2); CARBON DIOXIDE 21 mmol/L (22-30); CHLORIDE 111 mmol/L (98-107); GLUCOSE 143 mg/dL (75-110); POTASSIUM 4.7 mmol/L (3.6-5.0); SODIUM 145.1 mmol/L (137-145); TOTAL PROTEIN 7.5 g/dL (6.3-8.2)
[2017-08-21] MEDS ORDERED: RISPERIDONE 0.5 MG TAB.RAPDIS PO ONE (20:45)
[2017-08-21 21:56] LABS: ABSOLUTE EOSINOPHILS # (AUTO) 0.2 10^3/uL (0.0-0.6); ABSOLUTE LYMPHOCYTES (AUTO) 1.6 10^3/uL (0.5-4.7); ABSOLUTE MONOCYTES (AUTO) 0.3 10^3/uL (0.1-1.4); ABSOLUTE NEUT (AUTO) 2.4 10^3/uL (1.7-8.2); BASOPHILS % (AUTO) 0.8 % (0-2); EOSINOPHILS % (AUTO) 4.6 % (0-6); HEMATOCRIT 36.6 % (37.9-51.0); HEMOGLOBIN 12.4 g/dL (13.5-17.0); LYMPHOCYTES % (AUTO) 34.7 % (13-45); MEAN CORPUSCULAR HEMOGLOBIN 33.1 pg (27.0-33.4); MEAN CORPUSCULAR HGB CONC 33.9 g/dL (32.0-36.0); MEAN CORPUSCULAR VOLUME 98 fl (80-97); MONOCYTES % (AUTO) 6.9 % (3-13); PLATELET COUNT 126 10^3/uL (150-450); RED BLOOD COUNT 3.75 10^6/uL (4.35-5.55); RED CELL DISTRIBUTION WIDTH 12.9 % (11.5-14.0); TOTAL CELLS COUNTED % (AUTO) 100 %; WHITE BLOOD COUNT 4.5 10^3/uL (4.0-10.5)
[2017-08-22] MEDS: CEPHALEXIN 500 MG CAPSULE PO SCH ×3 (03:29→12:00)
--- NOTE | 2017-08-22 09:22 | ER Document Report ---
Doctor's Note Notes: 08/22/17 09:21 Patient is an 87-year-old male that is here secondary to some increased agitation at the nursing care facility. Patient appeared to have a urinary tract infection. We will finally able to obtain blood work showing some dehydration. Patient has been eating and drinking well. Patient is very adamant and angry about our attempts to possibly place an IV. We are treating the patient for urinary tract infection. We are attempting to find placement for the patient. I believe that if the patient is able to drink and tolerate p.o. fluids, we can check the patient's chemistry once again and avoid IV placement and fluid hydration while we treat the patient's urinary tract infection. 08/22/17 14:33 Urine culture as recorded. Patient has been drinking well. Keflex has been discontinued.
--- NOTE | 2017-08-22 11:48 | PSYCHOLOGICAL NOTE ---
Psych Note - Psych Note Psych Note: Reason for evaluation: Aggression Patient is an 87-year-old male. Patient stated "all right". Patient stated "no ". Patient stated "where is the table". Clinician conducted checking with patient Patient observed to be eating on his own and greeted clinician upon entering the room. Patient stated he is doing well and asked how the clinician was doing. Patient mood was euthymic with congruent affect as evidenced by patient smiling at clinician. Medication recommendations made by contracted psychiatric [facility] provider Dr. Savanah MD includes: 1. Please Discontinue Xanax 2. Please do not prescribe Vistaril or Benadryl 3. Please utilize Depakote sprinkles 500 mg twice a day instead of the p.o. form 4. Please begin risperidone 0.25 mg 1 time dose now 5. Please begin risperidone 0.25 mg q. 8 at 8 AM and 4 PM 6. Please begin clonidine 0.2 mg now 7. Please begin clonidine 24 hour patch 0.2 mg at bedtime Treating physicians are asked to consider avoiding prescribing benzodiazepines (example Ativan, Xanax, Valium, Klonopin), antipsychotics ( example Haldol, Geodon, Zyprexa, Seroquel), some sleep aids (such as, Ambien, Lunesta, Sonata), narcotic pain medications, and high-dose steroid (prednisone) as these have been known to cause and/or increased symptoms of aggression, psychosis, or paranoia in patients with neurodegenerative process, such as dementia, Alzheimer's disease, traumatic brain injury, etc. Impression/Plan: Patient is considered cleared from acute psychiatric services. Patient is still working with discharge planning to obtain long-term care. Please re-consult if new concerns arise. Dr. Donaldson was consulted on the care and management of this patient; attending physician is agreement with recommendations and disposition.
[2017-08-22] MEDS: BUSPIRONE HCL 10 MG TABLET PO SCH ×2 (12:00→18:00)
[2017-08-22] MEDS: RISPERIDONE 0.25 MG TABLET PO SCH ×3 (12:00→18:00)
[2017-08-22] MEDS: DIVALPROEX SODIUM 125 MG CAP.SPRINK PO SCH (12:00)
[2017-08-23] MEDS: BUSPIRONE HCL 10 MG TABLET PO SCH ×2 (10:13→23:00)
[2017-08-23] MEDS: DIVALPROEX SODIUM 125 MG CAP.SPRINK PO SCH ×2 (10:13→23:00)
[2017-08-23] MEDS: RISPERIDONE 0.25 MG TABLET PO SCH ×2 (10:13→23:00)
--- NOTE | 2017-08-23 10:34 | ER Document Report ---
Doctor's Note Notes: 08/23/17 10:33 Rounds: Chart reviewed and patient interviewed. Patient says he is feeling fine this morning. History of dementia. Resident at [facility], but they will not accept him back as a patient. Discharge planning is working with him and he has a pending Acceptance at [facility]. Vital signs were all essentially normal. Labs were normal except for a questionable UTI on his urine, that he does not have any symptoms. I doubt he has a UTI. Patient appears to be medically stable for transfer or discharge. Corby York MD
[2017-08-23] MEDS ORDERED: RISPERIDONE 0.25 MG TABLET PO ONE (18:00)
[2017-08-23] MEDS ORDERED: BUSPIRONE HCL 10 MG TABLET PO ONE (18:00)
[2017-08-23] MEDS ORDERED: DIVALPROEX SODIUM 125 MG CAP.SPRINK PO ONE (18:00)
[2017-08-23] MEDS: CLONIDINE 0.2 MG/24 HR PATCH.TDWK TD SCH (18:29)
[2017-08-24] MEDS ORDERED: HALOPERIDOL LACTATE INJ 5 MG/1 ML VIAL IM ONE (00:37)
--- NOTE | 2017-08-24 00:40 | ER Document Report ---
Doctor's Note Notes: 08/24/17 00:39 Patient became extremely agitated, was violent with nursing staff and swinging at them. He is given intramuscular haloperidol for emergent control. He refused any of his oral medications, refused food.
--- NOTE | 2017-08-24 10:10 | ER Document Report ---
Doctor's Note Notes: 08/24/17 10:07 Rounds: Chart reviewed. Patient not interviewed because he sleeping soundly. Staff reports that he has been combative at times. Lab studies reviewed and a final culture on the patient's urine came back with only a 4000 colony count, which is not considered a UTI. Vital signs are all stable. Patient appears to be medically stable for transfer or discharge. My understanding is that we are awaiting placement for this patient. Corby York MD
[2017-08-24] MEDS: RISPERIDONE 0.25 MG TABLET PO SCH ×2 (11:28→22:10)
[2017-08-24] MEDS: DIVALPROEX SODIUM 125 MG CAP.SPRINK PO SCH ×2 (11:28→22:10)
[2017-08-24] MEDS: BUSPIRONE HCL 10 MG TABLET PO SCH ×2 (11:29→22:09)
--- NOTE | 2017-08-25 09:48 | ER Document Report ---
Doctor's Note Notes: 08/25/17 09:48 This is a follow-up evaluation: Primary diagnosis-dementia Patient is here for the above reason, has been doing well, currently has --no complaint. On examination-vitals reviewed in the chart. General exam: Alert oriented 3 not in any acute distress HEENT: Normocephalic atraumatic pupils are equal reactive to light, Lungs-clear breath sounds no rales or wheezing. Cardiovascular system: Normal S1-S2 no murmurs. Gastrointestinal: Normal breath sounds, no organomegaly positive bowel sounds. Genitourinary: Skin: No lesions noted, no rash Psychiatric: Diagnoses: Dementia Plan: Waiting for placement for dementia
[2017-08-25] MEDS: DIVALPROEX SODIUM 125 MG CAP.SPRINK PO SCH (21:48)
[2017-08-25] MEDS: BUSPIRONE HCL 10 MG TABLET PO SCH (21:48)
[2017-08-25] MEDS: RISPERIDONE 0.25 MG TABLET PO SCH (21:48)
[2017-08-26] MEDS: DIVALPROEX SODIUM 125 MG CAP.SPRINK PO SCH ×2 (11:15→23:51)
[2017-08-26] MEDS: BUSPIRONE HCL 10 MG TABLET PO SCH ×2 (11:15→23:50)
[2017-08-26] MEDS: RISPERIDONE 0.25 MG TABLET PO SCH ×2 (11:15→23:52)
--- NOTE | 2017-08-27 09:39 | ER Document Report ---
Doctor's Note Notes: 08/27/17 09:38 This is a follow-up evaluation: Primary diagnosis-dementia Patient is here for the above reason, has been doing well, currently has --no complaint. On examination-vitals reviewed in the chart. General exam: Alert oriented 3 not in any acute distress HEENT: Normocephalic atraumatic pupils are equal reactive to light, Lungs-clear breath sounds no rales or wheezing. Cardiovascular system: Normal S1-S2 no murmurs. Gastrointestinal: Normal breath sounds, no organomegaly positive bowel sounds. Genitourinary: Skin: No lesions noted, no rash Psychiatric: Diagnoses: Dementia Plan: Waiting for placement for dementia
[2017-08-27] MEDS: DIVALPROEX SODIUM 125 MG CAP.SPRINK PO SCH ×2 (10:43→22:50)
[2017-08-27] MEDS: BUSPIRONE HCL 10 MG TABLET PO SCH ×2 (10:44→22:45)
[2017-08-27] MEDS: RISPERIDONE 0.25 MG TABLET PO SCH ×2 (10:44→22:45)
[2017-08-27] MEDS ORDERED: OLANZAPINE 5 MG TABLET PO ONE (17:54)
[2017-08-27] MEDS ORDERED: PROPRANOLOL HCL 10 MG TABLET PO ONE (21:22)
--- NOTE | 2017-08-27 22:17 | ER Document Report ---
Doctor's Note Notes: 08/27/17 22:15 After getting Zyprexa patient initially calm down a little bit and then became more agitated. I did consult with Dr. Donaldson for further medication management on this patient, discussed the fact that certain antipsychotics including Zyprexa can result in rebound agitation after initial calming, she recommends instead using propranolol 5-10 mg to treat his agitation. Blood pressure and heart rate were checked he is neither hypotensive nor bradycardic. Patient will be given 10 mg of propranolol by mouth.
[2017-08-27] MEDS ORDERED: PROPRANOLOL HCL 10 MG TABLET ONE (22:24)
[2017-08-27] MEDS ORDERED: DIVALPROEX SODIUM 125 MG CAP.SPRINK PO ONE (22:30)
--- NOTE | 2017-08-28 09:58 | ER Document Report ---
Doctor's Note Notes: 08/28/17 09:56 Rounds: Patient has now been here for 1 week and is a social admission awaiting placement and some long-term facility. Chart reviewed. Attempted to interview patient, but his only communications is mumbling something I can understand. Staff says he has times when he is awake and conversant, but at other times is like he is now. Vital signs are all normal. Patient has not had any lab studies done since he was admitted a week ago. I am going to repeat a CBC and Chem-12 at this time. Patient appears to be medically stable for transfer or discharge. Corby York MD
[2017-08-28] MEDS: BUSPIRONE HCL 10 MG TABLET PO SCH ×2 (10:05→21:56)
[2017-08-28] MEDS: DIVALPROEX SODIUM 125 MG CAP.SPRINK PO SCH ×2 (10:05→21:50)
[2017-08-28] MEDS: RISPERIDONE 0.25 MG TABLET PO SCH ×2 (10:05→21:55)
[2017-08-28] MEDS: CLONIDINE 0.2 MG/24 HR PATCH.TDWK TD SCH (10:47)
[2017-08-28 11:54] LABS: ALANINE AMINOTRANSFERASE 36 U/L (21-72); ALBUMIN 3.7 g/dL (3.5-5.0); ALKALINE PHOSPHATASE 74 U/L (38-126); ANION GAP 10 (5-19); ASPARTATE AMINO TRANSFERASE 95 U/L (17-59); BILIRUBIN,DIRECT 0.3 mg/dL (0.0-0.4); BILIRUBIN,TOTAL 1.1 mg/dL (0.2-1.3); BLOOD UREA NITROGEN 22 mg/dL (7-20); CALCIUM 9.8 mg/dL (8.4-10.2); CARBON DIOXIDE 32 mmol/L (22-30); CHLORIDE 108 mmol/L (98-107); GLUCOSE 102 mg/dL (75-110); POTASSIUM 4.3 mmol/L (3.6-5.0); SODIUM 149.8 mmol/L (137-145); TOTAL PROTEIN 7.5 g/dL (6.3-8.2)
[2017-08-28 14:42] LABS: ABSOLUTE EOSINOPHILS # (AUTO) 0.2 10^3/uL (0.0-0.6); ABSOLUTE LYMPHOCYTES (AUTO) 1.3 10^3/uL (0.5-4.7); ABSOLUTE MONOCYTES (AUTO) 0.4 10^3/uL (0.1-1.4); ABSOLUTE NEUT (AUTO) 1.8 10^3/uL (1.7-8.2); BASOPHILS % (AUTO) 0.7 % (0-2); EOSINOPHILS % (AUTO) 4.1 % (0-6); HEMOGLOBIN 13.1 g/dL (13.5-17.0); LYMPHOCYTES % (AUTO) 35.3 % (13-45); MEAN CORPUSCULAR HEMOGLOBIN 32.8 pg (27.0-33.4); MEAN CORPUSCULAR HGB CONC 33.7 g/dL (32.0-36.0); MEAN CORPUSCULAR VOLUME 97 fl (80-97); MONOCYTES % (AUTO) 11.2 % (3-13); PLATELET COUNT 114 10^3/uL (150-450); RED BLOOD COUNT 4.01 10^6/uL (4.35-5.55); RED CELL DISTRIBUTION WIDTH 13.2 % (11.5-14.0); SEGMENTED NEUTROPHILS % (AUTO) 48.7 % (42-78); TOTAL CELLS COUNTED % (AUTO) 100 %; WHITE BLOOD COUNT 3.7 10^3/uL (4.0-10.5)
--- NOTE | 2017-08-29 10:15 | ER Document Report ---
Doctor's Note Notes: 08/29/17 10:13 Rounds: Attempted to interview patient, but he is not able to be understood what is being said and does not answer questions or follow commands. He awakens easily. Vital signs are all normal. I did repeat a CBC and Chem-12 yesterday to be sure that the patient is stable and there is actually been some improvement in his minor renal insufficiency and certainly nothing worsening or abnormal about his labs yesterday. Patient appears to be medically stable for transfer or discharge. We are looking for long-term placement for this patient and a maintenance representative from one facility is supposed to visit the patient this afternoon. Corby York MD
[2017-08-29] MEDS: DIVALPROEX SODIUM 125 MG CAP.SPRINK PO SCH ×2 (11:00→23:11)
[2017-08-29] MEDS: RISPERIDONE 0.25 MG TABLET PO SCH ×2 (11:00→23:11)
[2017-08-29] MEDS: BUSPIRONE HCL 10 MG TABLET PO SCH ×2 (11:00→23:10)
[2017-08-30] MEDS: DIVALPROEX SODIUM 125 MG CAP.SPRINK PO SCH ×2 (10:15→23:59)
[2017-08-30] MEDS: BUSPIRONE HCL 10 MG TABLET PO SCH (12:00)
[2017-08-30] MEDS: RISPERIDONE 0.25 MG TABLET PO SCH (12:00)
--- NOTE | 2017-08-30 12:48 | ER Document Report ---
Doctor's Note Notes: 08/30/17 12:44 Pt is awake and talking, not eating much breakfast, spitting it out at the nurse. Nurse reports that yesterday pt had to be fed by a nurse. She reports that yesterday representatives from a facility came to assess him and today we will be informed whether or not he will be accepted to the facility. PE: Pt is mumbling nonsensical speech. (AMANDA PETTIT) 08/30/17 19:34 Does not appear to be in any distress, no respiratory distress, skin is warm and dry. No facial droop. We did weigh the patient today as he has had some difficulty being commenced eat his meal yesterday. Patient has actually gained weight. I have put in a consult for evaluation by physical therapy. We are awaiting acceptance from any facility. (TAYE GARCIA)
[2017-08-31] MEDS: RISPERIDONE 0.25 MG TABLET PO SCH ×2 (00:01→10:00)
[2017-08-31] MEDS: BUSPIRONE HCL 10 MG TABLET PO SCH ×2 (00:02→10:00)
--- NOTE | 2017-08-31 09:39 | ER Document Report ---
Doctor's Note Notes: 08/31/17 09:36 Medical rounds: Chart reviewed and patient interviewed briefly. Vital signs remain stable. Laboratory values are satisfactory. On examination, patient is alert and cooperative but somewhat confused. He denies any somatic complaint. He remains medically stable pending placement.
[2017-08-31] MEDS: DIVALPROEX SODIUM 125 MG CAP.SPRINK PO SCH ×2 (10:00→21:06)
[2017-08-31] MEDS ORDERED: LORAZEPAM INJ 2 MG/1 ML VIAL IM ONE (23:24)
[2017-09-01] MEDS: DIVALPROEX SODIUM 125 MG CAP.SPRINK PO SCH (11:31)
[2017-09-01] MEDS: BUSPIRONE HCL 10 MG TABLET PO SCH (11:31)
[2017-09-01] MEDS: RISPERIDONE 0.25 MG TABLET PO SCH (11:31)
--- NOTE | 2017-09-01 12:04 | ER Document Report ---
Doctor's Note Notes: 09/01/17 11:15 Patient in bed, initially refusing to eat his food, now being fed by nurse. Alert, still mumbling and very difficult to understand. Does not directly answer any of my questions. No significant change since the last time I saw him. No problems overnight as reported by morning nurse. We will still try to avoid benzodiazepines and antipsychotics in this elderly demented patient in whom this can sometimes worsen his agitation. Social work is continuing to try to find him placement.
[2017-09-02] MEDS ORDERED: KETOROLAC TROMETHAMINE 10 MG TABLET PO ONE (05:41)
[2017-09-02] MEDS: DIVALPROEX SODIUM 125 MG CAP.SPRINK PO SCH ×2 (10:57→21:49)
[2017-09-02] MEDS: RISPERIDONE 0.25 MG TABLET PO SCH ×2 (10:57→21:50)
[2017-09-02] MEDS: BUSPIRONE HCL 10 MG TABLET PO SCH ×2 (10:57→21:50)
--- NOTE | 2017-09-02 17:39 | ER Document Report ---
Doctor's Note Notes: 09/02/17 17:36 Mr. Gill was sleeping soundly. I woke him up see if he wanted to eat, he sort of mumbled and indicated he was not interested in eating. He went back to sleep. Spoke with his nurse who states on the time she care for him before they would wait until he wakes up and states that he wants him to eat and then they would repeat his meal for him. I reviewed several of the previous notes and found that his mental status and emergency room status is essentially unchanged. I reviewed social sciences instructor's notes, 2 days ago he was still on a waiting list at [facility], and [facility] was going to send someone here to evaluate him, possibly tomorrow.
--- NOTE | 2017-09-03 11:52 | ER Document Report ---
Doctor's Note Notes: 09/03/17 11:44 Patient in bed, alert, still mumbling and very difficult to understand. No significant change since the last time I saw him. Social work is continuing to try to find him placement. Patient in bed, initially refusing to eat his food, now being fed by nurse. Alert, still mumbling and very difficult to understand. Does not directly answer any of my questions. No significant change since the last time I saw him. No problems overnight as reported by morning nurse. We will still try to avoid benzodiazepines and antipsychotics in this elderly demented patient in whom this can sometimes worsen his agitation. Social work is continuing to try to find him placement. PHYSICAL EXAM GENERAL: Alert, interacts well. No acute distress. HEAD: Normocephalic, atraumatic. EYES: Pupils equal, round, and reactive to light. Extraocular movements intact. ENT: Oral mucosa moist, tongue midline. NECK: Full range of motion. Supple. Trachea midline. LUNGS: No respiratory distress. HEART: Regular rate and rhythm. ABDOMEN: Soft, non-tender. Non-distended. Bowel sounds present in all 4 quadrants. No guarding, rigidity, or rebound. EXTREMITIES: Moves all 4 extremities spontaneously. No edema, radial and dorsalis pedis pulses 2/4 bilaterally. No cyanosis. NEUROLOGICAL: Alert and oriented x3. Normal speech. PSYCH: Normal affect, normal mood. SKIN: Warm, dry, normal turgor. No rashes or lesions noted.
[2017-09-03] MEDS: BUSPIRONE HCL 10 MG TABLET PO SCH (21:45)
[2017-09-03] MEDS: RISPERIDONE 0.25 MG TABLET PO SCH (21:45)
--- NOTE | 2017-09-04 10:17 | ER Document Report ---
Doctor's Note Notes: 09/04/17 10:16 Rounds: Chart reviewed. Patient in the middle of getting a bath so not interviewed. Reviewing patient's notes reveal the patient is showing no change in behavior during his more than 2 weeks here. Labs done last week were at baseline. Vital signs are normal. Patient appears to be medically stable for transfer or discharge. insurance and financial services agent is trying to find placement for this patient. Corby York MD
[2017-09-04] MEDS: DIVALPROEX SODIUM 125 MG CAP.SPRINK PO SCH ×2 (11:04→23:17)
[2017-09-04] MEDS: BUSPIRONE HCL 10 MG TABLET PO SCH ×2 (11:04→23:15)
[2017-09-04] MEDS: RISPERIDONE 0.25 MG TABLET PO SCH ×2 (11:05→23:17)
[2017-09-04] MEDS: CLONIDINE 0.2 MG/24 HR PATCH.TDWK TD SCH (11:05)
--- NOTE | 2017-09-05 03:04 | ER Document Report ---
Doctor's Note Notes: 09/05/17 03:03 Mitten restraints ordered as patient is shredding his briefs. Otherwise stable.
--- NOTE | 2017-09-05 10:11 | ER Document Report ---
Doctor's Note Notes: 09/05/17 10:10 Rounds: Chart reviewed and patient interviewed. Vital signs are normal. Patient without complaints. In fact, this morning, patient has carried on a conversation with me that I could understand what he was saying and he understands and responds appropriately to what I am saying. I do not recall having such interaction with this patient during the couple of weeks that he has been here. Still awaiting a placement for this patient. Patient appears to be medically stable for transfer or discharge. Corby York MD
[2017-09-05] MEDS: DIVALPROEX SODIUM 125 MG CAP.SPRINK PO SCH (10:20)
[2017-09-05] MEDS: RISPERIDONE 0.25 MG TABLET PO SCH (10:20)
[2017-09-05] MEDS: BUSPIRONE HCL 10 MG TABLET PO SCH (10:20)
[2017-09-06] MEDS: DIVALPROEX SODIUM 125 MG CAP.SPRINK PO SCH (09:51)
[2017-09-06] MEDS: BUSPIRONE HCL 10 MG TABLET PO SCH (09:51)
[2017-09-06] MEDS: RISPERIDONE 0.25 MG TABLET PO SCH (09:51)
--- NOTE | 2017-09-06 12:52 | ER Document Report ---
Doctor's Note Notes: 09/06/17 12:51 Patient is calm and cooperative in no acute distress. Vital signs are stable. We believe we have a bed at [facility] in [place] for tomorrow.
--- NOTE | 2017-09-07 10:16 | ER Document Report ---
Doctor's Note Notes: 09/07/17 10:15 Patient is calm and cooperative in no acute distress. We are finding placement for the patient hopefully today. Patient will be taken to [facility] care in [facility]. VSS.
[2017-09-07] MEDS: DIVALPROEX SODIUM 125 MG CAP.SPRINK PO SCH (11:17)
[2017-09-07] MEDS: BUSPIRONE HCL 10 MG TABLET PO SCH (11:17)
[2017-09-07] MEDS: RISPERIDONE 0.25 MG TABLET PO SCH (11:17)
[2017-09-07 14:07] VITALS: BP 127/74
== END 2017-09-07 13:59 ==
LOC: ER 12:19
DX: F03.91 Unspecified dementia, unspecified severity, with behavioral disturbance (principal); Z75.1 Person awaiting admission to adequate facility elsewhere; N28.9 Disorder of kidney and ureter, unspecified; E86.0 Dehydration; N39.0 Urinary tract infection, site not specified; Z78.1 Physical restraint status
CPT/HCPCS: 93005; 99285; 96372; 36415; 87086; 85025; 80053; 81001; 93010; A9270 ×42; J1630 ×2; J3490 ×19; J2060; G8978; G8979